=== PATIENT | female | born 1970 | race Caucasian/White ===

== ENCOUNTER → 2017-01-26 | Outpatient (CLI) | payer BC ==
--- NOTE | 2017-01-26 13:29 | RAD ---
EXAM: DIGITAL SCREEN BILAT W/CAD HISTORY: Routine Screening. COMPARISON: [facility] including 01/26/2016 Standard mammographic views are obtained of the bilateral breasts. This study was interpreted with the benefit of Computerized Aided Detection (CAD). FINDINGS: The breast parenchyma Is heterogenously dense, which could reduce sensitivity of mammography. Breast parenchyma level III.. There is no definite new suspicious spiculated mass or worrisome new cluster of microcalcifications. IMPRESSION: No definite new suspicious mass. BI-RADS CATEGORY: 1 NEGATIVE RECOMMENDED FOLLOW-UP: 12M 12 MONTH FOLLOW-UP PQRS compliance statement: Patient information was entered into a reminder system with a target due date for the next mammogram. Mammography is a sensitive method for finding small breast cancers, but it does not detect them all and is not a substitute for careful clinical examination. A negative mammogram does not negate a clinically suspicious finding and should not result in delay in biopsying a clinically suspicious abnormality. "Our facility is accredited by the [employer] Mammography Program."
== END | disposition home or self-care (01) ==
LOC: MAMMO 08:56
PROVIDERS: ATTEND Obstetrics & Gynecology
DX: Z12.31 Encounter for screening mammogram for malignant neoplasm of breast (principal)
CPT/HCPCS: G0202; 77067

== ENCOUNTER → 2017-11-24 | Outpatient (CLI) | payer BC ==
--- NOTE | 2017-11-24 18:27 | RAD ---
EXAM: Left foot, 3 views. HISTORY: Heel pain. COMPARISON: None. FINDINGS: Frontal, lateral and oblique views of the left foot are obtained. There is no fracture, dislocation or subluxation. There is a suspected second hammertoe deformity. There is a small plantar spur. IMPRESSION: No acute osseous finding. Small plantar spur and suspected second hammertoe deformity. Electronically signed by: Dasha Horton MD (11/24/2017 6:24 PM) [facility]
== END | disposition home or self-care (01) ==
LOC: RAD 17:49
PROVIDERS: ATTEND Nurse Practitioner Family
DX: M77.32 Calcaneal spur, left foot (principal)
CPT/HCPCS: 73630

== ENCOUNTER → 2018-01-27 | Outpatient (CLI) | payer BC ==
--- NOTE | 2018-01-27 11:37 | RAD ---
DATE: January 27, 2018 EXAM: MAMMO SHANT SCREENING BILATERAL HISTORY: Routine screening. COMPARISON: January 26, 2017. January 26, 2016. TECHNIQUE: 2D digital CC and MLO views were obtained. 3D tomosynthesis imaging was performed in the CC and MLO projections. This study was interpreted with the benefit of Computerized Aided Detection (CAD). FINDINGS: The breast parenchyma is heterogeneously dense, category C, which may obscure small masses. Parenchymal pattern again is nodular. Stable nodule in the right breast at the 1:00 position is noted. Probable intraparenchymal lymph nodes in the inferior left breast are stable. There is no worrisome mass or area of architectural distortion. There are no suspicious groupings of microcalcifications. IMPRESSION: Stable mammogram with benign findings. BI-RADS CATEGORY: 2 BENIGN FINDING RECOMMENDED FOLLOW-UP: 12M 12 MONTH FOLLOW-UP PQRS compliance statement: Patient information was entered into a reminder system with a target due date for the next mammogram. Mammography is a sensitive method for finding small breast cancers, but it does not detect them all and is not a substitute for careful clinical examination. A negative mammogram does not negate a clinically suspicious finding and should not result in delay in biopsying a clinically suspicious abnormality. "Our facility is accredited by the [employer] Mammography [employer]."
== END | disposition home or self-care (01) ==
LOC: MAMMO 08:05
PROVIDERS: ATTEND Obstetrics & Gynecology
DX: Z12.31 Encounter for screening mammogram for malignant neoplasm of breast (principal)
CPT/HCPCS: 77063; 77067

== ENCOUNTER → 2019-01-29 | Outpatient (CLI) | payer BC ==
--- NOTE | 2019-02-01 15:46 | RAD ---
EXAM: MAMMO SHANT SCREENING BILATERAL HISTORY: routine screening evaluation. COMPARISON: 01/27/2018, 01/26/2017, 01/26/2016 Bilateral CC and MLO views of the breasts were performed. Bilateral breast tomosynthesis was performed in CC and MLO projections. This study was interpreted with the benefit of Computerized Aided Detection (CAD). Breast Density: The breast parenchyma is heterogeneously dense, which could reduce sensitivity of mammography. Breast parenchyma level C. FINDINGS: Benign calcifications are present. The parenchymal pattern appears stable. Multiple bilateral benign type well-circumscribed nodular densities are seen, possibly cysts. No suspicious masses, microcalcifications or architectural distortion is present to suggest malignancy in either breast. The visualized axillae are unremarkable. IMPRESSION: No mammographic evidence of malignancy. BI-RADS CATEGORY: 2 BENIGN FINDING(S) RECOMMENDED FOLLOW-UP: 12M 12 MONTH FOLLOW-UP Annual screening mammography is recommended, unless clinically indicated sooner based on symptoms or change in physical exam. PQRS compliance statement: Patient information was entered into a reminder system with a target due date for the next mammogram. Mammography is a sensitive method for finding small breast cancers, but it does not detect them all and is not a substitute for careful clinical examination. A negative mammogram does not negate a clinically suspicious finding and should not result in delay in biopsying a clinically suspicious abnormality. "Our facility is accredited by the [employer] Mammography Program." JAKED
== END | disposition home or self-care (01) ==
LOC: MAMMO 12:23
PROVIDERS: ATTEND Obstetrics & Gynecology
DX: Z12.31 Encounter for screening mammogram for malignant neoplasm of breast (principal); N64.89 Other specified disorders of breast
CPT/HCPCS: 77063; 77067

== ENCOUNTER → 2020-01-31 | Outpatient (CLI) | payer BC ==
--- NOTE | 2020-02-01 14:10 | RAD ---
EXAM: BILATERAL DIGITAL 3D SCREENING MAMMOGRAPHY. HISTORY: Routine mammographic screening. TECHNIQUE: Bilateral digital 3D and tomographic images were obtained in CC and MLO projections. Computer-aided detection was applied. COMPARISON: 01/29/2019. COMPOSITION: C. The breasts are heterogeneously dense, which may obscure small masses. FINDINGS: A nodule at the right 12:00 position in the posterior third is partially circumscribed and partially obscured. A nodule posteriorly on the left MLO view at the nipple line is stable. There is no suspicious finding on the left. The parenchymal pattern is stable. BI-RADS CATEGORY 0: Incomplete--Needs Additional Imaging Evaluation. RECOMMENDATION: 1. Sonography of a 17 mm nodule at the right 12:00 position. Electronically signed by: Ananya Mendez MD (02/01/2020 2:07 PM) [id number]
== END ==
LOC: MAMMO 07:48
PROVIDERS: ATTEND Obstetrics & Gynecology
DX: Z12.31 Encounter for screening mammogram for malignant neoplasm of breast (principal); N63.15 Unspecified lump in the right breast, overlapping quadrants
CPT/HCPCS: 77063; 77067

== ENCOUNTER → 2020-02-08 | Outpatient (CLI) | payer BC ==
--- NOTE | 2020-02-08 17:51 | RAD ---
Examination: Limited right breast ultrasound. INDICATION: Screening recall for posterior right breast nodule. COMPARISON: Mammograms of 02/05/2015, 01/26/2016, 01/26/2017, 01/27/2018 and 01/29/2019 in addition to the 01/31/2020 screening mammogram. TECHNIQUE: Grayscale and color Doppler imaging of the superior right breast was performed in the area of mammographic interest. FINDINGS: An oval circumscribed parallel orientation 1.6 cm anechoic mass with posterior acoustic enhancement is present at the right 1:00 position 10 cm from the nipple and is consistent with a benign cyst. Correlation with the previous mammograms shows the patient has had a waxing and waning pattern of nodularity compatible with benign cystic change. There are no suspicious sonographic features. IMPRESSION: Benign findings in the right breast consistent with a cyst. No evidence of malignancy. Recommend return to routine screening next due in one year. BI-RADS Category 2 Benign findings
== END | disposition home or self-care (01) ==
LOC: US 12:49
PROVIDERS: ATTEND Physician Assistant Medical
DX: R92.2 Inconclusive mammogram (principal); N63.12 Unspecified lump in the right breast, upper inner quadrant
CPT/HCPCS: 76641

== ENCOUNTER → 2021-02-10 | Outpatient (CLI) | payer MEDICARE ==
--- NOTE | 2021-02-10 11:54 | RAD ---
EXAM: Bilateral digital screening mammogram with tomosynthesis. HISTORY: 50-year-old female presents for screening mammography. TECHNIQUE: Full-field digital craniocaudal and mediolateral oblique 2D and 3D tomosynthesis images of both breasts are obtained for evaluation. Computer aided detection was applied. COMPARISON: 01/31/2020 and 01/27/2019 BREAST PARENCHYMAL DENSITY: Level C - Heterogeneously dense. FINDINGS: There is no new suspicious mass, microcalcification or region of architectural distortion. There are stable benign-appearing areas of nodularity and asymmetry within both breasts. IMPRESSION: BI-RADS Category 2: Benign finding(s). RECOMMENDATION: Annual mammography is recommended. If your mammogram demonstrates that you have dense breast tissue, which could hide abnormalities, and if you have other risk factors for breast cancer that have been identified, you might benefit from s upplemental screening tests that may be suggested by your ordering physician. Dense breast tissue, i n and of itself, is a relatively common condition. This information is not provided to cause undue c oncern, but rather to raise your awareness and to promote discussion with your physician regarding th e presence of other risk factors, in addition to dense breast tissue. A report of your mammography re sults will be sent to you and your physician. You should contact your physician if you have any ques tions or concerns regarding this report. Mammography is a sensitive method for finding small breast cancers, but it does not detect them all a nd is not a substitute for careful clinical examination. A negative mammogram does not negate a clin ically suspicious finding and should not result in delay in biopsying a clinically suspicious abnorma lity. PQRS compliance statement - Patient information was entered into a reminder system with a target due date for the next mammogram. "Our facility is accredited by the [employer] Mammography Program." Electronically signed by: Dasha Horton MD (02/10/2021 11:51 AM) [id number]
== END ==
LOC: MAMMO 09:47
PROVIDERS: ATTEND Obstetrics & Gynecology
DX: Z12.31 Encounter for screening mammogram for malignant neoplasm of breast (principal)
CPT/HCPCS: 77063; 77067

== ENCOUNTER → 2021-06-15 | Outpatient (CLI) | payer MEDICARE ==
--- NOTE | 2021-06-15 17:36 | RAD ---
EXAM: XR KNEE 3 [id number] 06/15/2021 10:48 AM CLINICAL INDICATION: Right knee pain COMPARISON: None TECHNIQUE: 3 views of the right knee FINDINGS: Chronic-appearing fragmentation at the superior lateral aspect of the patella seen on AP vi ew is consistent with a bipartite variant. No acute fracture. Alignment is normal. Joint spaces are m aintained. There are tiny medial patellofemoral osteophytes. Small joint effusion. IMPRESSION: No acute osseous abnormality. Bipartite patella. Electronically signed by: Nida Escalona MD (06/15/2021 5:33 PM) [id number]
== END ==
LOC: RAD 10:33
PROVIDERS: ATTEND Physician Assistant Medical
DX: M25.461 Effusion, right knee (principal); M25.761 Osteophyte, right knee; Q74.1 Congenital malformation of knee
CPT/HCPCS: 73562